=== PATIENT | male | born 1995 | race Caucasian/White ===

== ENCOUNTER 2024-05-30 10:51 | Emergency (ER) | payer SELFPAY ==
[2024-05-30 11:22] VITALS: BP 138/70; PULSE 68; RESP 18; TEMP 36.7; O2SAT 98
--- NOTE | 2024-05-30 11:35 | XR_ITS ---
WS: [id number] Exam: XR ankle LT min 3V* [id number] Date/Time of Exam: 05/30/2024 11:41 AM Reason For Exam: pain Findings: Multiple views of the ankle reveal no fracture or displacements of bone. No soft tissue swelling is present. There are no periosteal reactions noted. The talus and calcaneus are in adequate position. The joint space is smooth and equidistant. XR/XR ankle LT min 3V* [id number] IMPRESSION: Negative LEFT ankle.
--- NOTE | 2024-05-30 12:50 | ED_ITS ---
HPI - Extremity Problem General: Chief complaint: Extremity Injury, Lower Stated complaint: ankle pain, swollen Time Seen by Provider: 05/30/24 12:45 Source: patient Mode of arrival: ambulatory Limitations: no limitations History of Present Illness: 29-year-old male states that he twisted his left ankle a week ago. States he is continue had pain since then he states he is seen walking clinic had normal x- ray states he does not see a follow-up until June 27. He states had some slight increased welling states able to stand on it not able to bear all of his weight or walk denies any other new injuries rates his pain a 3 out of 10 at rest Associated symptoms: Deny chest pain, fever(s) or rash Related Data Home Medications Medication Instructions Recorded Confirmed No Known Home Medications 12/16/22 12/16/22 Allergies Allergy/AdvReac Type Severity Reaction Status Date / Time penicillin V Allergy ADR-Itching Verified 12/16/22 10:02 Review of Systems Const: Denies: fever(s), chills, body aches or change in appetite ENMT: Denies: throat pain or dental pain Card: Denies: chest pain Resp: Denies: dyspnea GI: Denies: abdominal pain, nausea, vomiting or diarrhea Musc: Reports: extremity pain; Denies: neck pain or back pain Skin/Breast: Denies: rash Neuro: Denies: headache(s) Physical Exam Const: COMMON NORMALS: no acute distress, patient oriented x3 and healthy appearing HENMT: COMMON NORMALS: normocephalic and atraumatic HEAD & SCALP: normocephalic and atraumatic Eye: COMMON NORMALS: Equal, round and reactive pupils present and EOMs intact bilaterally PUPIL: Yes Equal, round and reactive pupils present Neck/C-Spine: COMMON NORMALS: full ROM and supple Chest: COMMONS NORMALS: normal inspection of the chest Resp: COMMON NORMALS: normal respiratory effort Cardio: COMMON NORMALS: regular rate, regular rhythm and No murmurs present (Cardio) RATE: regular rate RHYTHM: regular rhythm GI: COMMON NORMALS: Normal to inspection, nondistended, normoactive bowel sounds present, Soft to palpation, non-tender and no masses PALPATION: Yes Soft to palpation Extremity: COMMON NORMALS: full ROM NARRATIVE EXTREMITY EXAM: Tenderness over left lateral ankle no obvious deformity Neuro: COMMON NORMALS: patient oriented x3, moves all extremities and no focal motor deficits Psych: COMMON NORMALS: mental status grossly normal, Normal thought process present and cooperative THOUGHT PROCESS: Normal thought process present Skin: COMMON NORMALS: no rashes or lesions noted and no wounds GENERAL SKIN EXAM: no rashes or lesions noted Course Vital Signs: Vital signs: Vital Signs Temperature 98.0 F 05/30/24 11:22 Pulse Rate 68 05/30/24 11:22 Respiratory Rate 18 05/30/24 11:22 Blood Pressure 138/70 05/30/24 11:22 Pulse Oximetry 98 05/30/24 11:22 Oxygen Delivery Me thod Room Air 05/30/24 11:22 MDM - Extremity (Nontraumatic) Medical Decision Making Patient presents with an ankle sprain x-ray shows no fracture patient stable for discharge we will get patient follow-up with podiatry return if worsening. Medical Records I reviewed the patient's medical records. Lab Data Radiology Impressions Ankle X-Ray 05/30/24 11:35 IMPRESSION: Negative LEFT ankle. All radiology interpretation(s) finalized by discharge Discharge Plan Discharge Patient Disposition: Home Clinical Impression: Ankle sprain and strain Condition: Stable Prescriptions: No Action No Known Home Medications Discharge Orders: Discharge ED (Routine); Ordered 05/30/24 Ordered By: Daniel Brown Referrals: Dilshad Mcdaniel DPM [Physician] - 1-3 days Minnie Garza FNP-C [Primary Care Provider] - Sukhi Jimenez Jr, MD [Family Provider] - Discharge Diet: Advance as tolerated Discharge Activity: Resume usual activity Patient Instructions: Ankle Sprain (ED) Coding Level of Care Code ED [employer] Supervisor for Arnel Farooq
== END 2024-05-30 12:58 | disposition home or self-care (01) ==
PROVIDERS: Emergency Provider Emergency Medicine; Family Provider Pediatrics Adolescent Medicine; PCP Nurse Practitioner
DX: S93.402A Sprain of unspecified ligament of left ankle, initial encounter (principal); X58.XXXA Exposure to other specified factors, initial encounter
CPT/HCPCS: 73610; 99283